=== PATIENT | male | born 1970 ===

== ENCOUNTER 2017-06-11 02:50 | Emergency (ER) | payer MEDICAID ==
[2017-06-11 03:39] VITALS: RESP 18; O2SAT 97
--- NOTE | 2017-06-11 03:41 | ED PDOC ---
Arrival/HPI - General Chief Complaint: Abdominal Pain Time Seen by Provider: 06/11/17 03:22 Historian: Patient - History of Present Illness Narrative History of Present Illness (Text): 06/11/17 03:36 Patient is a 47 year old male who presents to the Emergency department complaining of abdominal pain associated with his umbilical hernia and a right leg abscess. Patient denies any vomiting associated with his hernia. Patient denies fevers, chills, shortness of breath, chest pain, dyspnea on exertion, cough, nausea, vomiting, diarrhea, headache, dizziness, back pain, neck pain, or any other complaint. Time/Duration: Prior to Arrival Symptom Onset: Sudden Symptom Course: Unchanged Context: Street Past Medical History - Provider Review Nursing Documentation Reviewed: Yes - Psychiatric Hx Substance Use: No Family/Social History - Physician Review Nursing Documentation Reviewed: Yes Family/Social History: No Known Family HX Smoking Status: Heavy Smoker > 10 Cigarettes Daily Hx Alcohol Use: Yes Frequency of alcohol use: Daily Hx Substance Use: No Allergies/Home Meds Allergies/Adverse Reactions: Allergies No Known Allergies Allergy (Verified 03/23/17 02:08) Review of Systems - Physician Review All systems were reviewed & negative as marked: Yes - Review of Systems Constitutional: absent: Fevers, Night Sweats Respiratory: absent: SOB, Cough Cardiovascular: absent: Chest Pain, CHIN Gastrointestinal: Abdominal Pain. absent: Diarrhea, Nausea, Vomiting Musculoskeletal: absent: Back Pain, Neck Pain Skin: Abscess (Right lower extremity) Neurological: absent: Headache, Dizziness Physical Exam Vital Signs Reviewed: Yes Vital Signs Temp Pulse Resp BP Pulse Ox 06/11/17 05:05 98 F 77 18 120/70 97 06/11/17 04:57 98 F 77 18 120/70 97 06/11/17 03:38 97.9 F 75 18 119/62 97 Temperature: Afebrile Blood Pressure: Normal Pulse: Regular Respiratory Rate: Normal Appearance: Positive for: Well-Appearing, Non-Toxic, Comfortable Pain Distress: None Mental Status: Positive for: Alert and Oriented X 3 - Systems Exam Head: Present: Atraumatic, Normocephalic Pupils: Present: PERRL Extroacular Muscles: Present: EOMI Conjunctiva: Present: Normal Mouth: Present: Moist Mucous Membranes Neck: Present: Normal Range of Motion Respiratory/Chest: Present: Clear to Auscultation, Good Air Exchange. No: Respiratory Distress, Accessory Muscle Use Cardiovascular: Present: Regular Rate and Rhythm, Normal S1, S2. No: Murmurs Abdomen: Present: Hernias (non incarcerated umbilical hernia). No: Tenderness, Distention, Peritoneal Signs Back: Present: Normal Inspection Upper Extremity: Present: Normal Inspection. No: Cyanosis, Edema Lower Extremity: Present: Normal Inspection. No: Edema Neurological: Present: GCS=15, CN II-XII Intact, Speech Normal Skin: Present: Warm, Dry, Normal Color, Other (Scab on right magallanes). No: Rashes Psychiatric: Present: Alert, Oriented x 3, Normal Insight, Normal Concentration Medical Decision Making ED Course and Treatment: 06/11/17 03:38 Impression: Patient is a 47 year old male with abdominal pain and an abscess on his right leg. Differential Diagnosis included but are not limited to: Umbilical hernia Plan: --abdominal and pelvic CT w/o PO or IV contrast -- Reassess and disposition Prior Visits: Notes and results from previous visits were reviewed. Progress Notes: 06/11/17 04:42 EXAM: CT Abdomen and Pelvis Without Intravenous Contrast FINDINGS: Limitations: Lack of intravenous contrast. Motion artifact - mild. Lung bases: Hyperinflation of lung bases. Minimal atelectasis/scarring. Heart: Coronary artery calcifications. ABDOMEN: Liver: < 0.5 cm lesion. Gallbladder and bile ducts: No calcified stones. No ductal dilation. Pancreas: Unremarkable. No ductal dilation. Spleen: Mildly enlarged. Adrenals: No mass. Kidneys and ureters: No renal calculi. No hydronephrosis. Stomach and bowel: No definite mural thickening. No obstruction. PELVIS: Appendix: No definite findings to suggest acute appendicitis. Bladder: Unremarkable. No stones. Reproductive: Mildly enlarged prostate. ABDOMEN and PELVIS: Intraperitoneal space: No significant fluid collection. No free air. Bones/joints: No acute fracture. Soft tissues: Small paraumbilical hernia containing fat. Tiny RIGHT inguinal hernia containing fat. Vasculature: [id number] atherosclerotic disease. No aneurysm. Lymph nodes: No pathologically enlarged lymph nodes. IMPRESSION: 1. Mild splenomegaly. 2. Prostate enlargement. Followup as clinically warranted. 3. Liver lesion. For patients with low to average risk of malignancy, no further follow-up is necessary. For patients with high risk of malignancy (known malignancy that can metastasize or other risk factors), recommend follow-up abdominal CT or MR in 6 months. 4. Incidental/non-acute findings are described above. Dictated and Authenticated by: Amilcar Alva MD 06/11/2017 4:38 AM Eastern Time ([place] & [place]) On re-evaluation, patient feels better and is in no acute distress. I have discussed the results and plan with the patient, who expresses understanding. Patient in agreement with plan to be discharged home. Patient is stable for discharge. Patient was instructed to follow up with physician or return if symptoms worsen or new concerning symptoms arise. 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 I have reviewed the chart and agree that the record accurately reflects my personal performance of the history, physical exam, medical decision making, and the department course for this patient. I have also personally directed, reviewed, and agree with the discharge instructions and disposition. Disposition/Present on Arrival - Present on Arrival Any Indicators Present on Arrival: No History of DVT/PE: No History of Uncontrolled Diabetes: No Urinary Catheter: No History of Decub. Ulcer: No History Surgical Site Infection Following: None - Disposition Have Diagnosis and Disposition been Completed?: Yes Diagnosis: Umbilical hernia without obstruction or gangrene, Cellulitis of right lower extremity Disposition: HOME/ ROUTINE Disposition Time: 05:00 Condition: GOOD Discharge Instructions (ExitCare): Cellulitis and Erysipelas (Skin Infections) , Umbilical Hernia, Adult, Cellulitis (ED) Prescriptions: Mupirocin 2% Ointment [Bactroban] 1 appl TP BID #30 tube Forms: [employer] (Latvian)
--- NOTE | 2017-06-11 04:39 | CT ---
EXAM: CT Abdomen and Pelvis Without Intravenous Contrast CLINICAL HISTORY: 47 years old, male; Pain; Abdominal pain; Generalized; Additional info: Abd pain TECHNIQUE: Axial computed tomography images of the abdomen and pelvis without intravenous contrast. All CT scans at this facility use one or more dose reduction techniques, viz.: automated exposure control; ma/kV adjustment per patient size (including targeted exams where dose is matched to indication; i.e. head); or iterative reconstruction technique. Coronal and sagittal reformatted images were created and reviewed. COMPARISON: No relevant prior studies available. FINDINGS: Limitations: Lack of intravenous contrast. Motion artifact - mild. Lung bases: Hyperinflation of lung bases. Minimal atelectasis/scarring. Heart: Coronary artery calcifications. ABDOMEN: Liver: < 0.5 cm lesion. Gallbladder and bile ducts: No calcified stones. No ductal dilation. Pancreas: Unremarkable. No ductal dilation. Spleen: Mildly enlarged. Adrenals: No mass. Kidneys and ureters: No renal calculi. No hydronephrosis. Stomach and bowel: No definite mural thickening. No obstruction. PELVIS: Appendix: No definite findings to suggest acute appendicitis. Bladder: Unremarkable. No stones. Reproductive: Mildly enlarged prostate. ABDOMEN and PELVIS: Intraperitoneal space: No significant fluid collection. No free air. Bones/joints: No acute fracture. Soft tissues: Small paraumbilical hernia containing fat. Tiny RIGHT inguinal hernia containing fat. Vasculature: [id number] atherosclerotic disease. No aneurysm. Lymph nodes: No pathologically enlarged lymph nodes. IMPRESSION: 1. Mild splenomegaly. 2. Prostate enlargement. Followup as clinically warranted. 3. Liver lesion. For patients with low to average risk of malignancy, no further follow-up is necessary. For patients with high risk of malignancy (known malignancy that can metastasize or other risk factors), recommend follow-up abdominal CT or MR in 6 months. 4. Incidental/non-acute findings are described above.
[2017-06-11 05:07] VITALS: BP 120/70; PULSE 77; TEMP 98
== END 2017-06-11 04:50 | disposition home or self-care (01) ==
LOC: MERGE 02:50 → ED 02:50
DX: L03.115 Cellulitis of right lower limb (principal); K42.9 Umbilical hernia without obstruction or gangrene; F17.210 Nicotine dependence, cigarettes, uncomplicated